=== PATIENT | male | born 1965 | race Caucasian/White ===

== ENCOUNTER 2025-08-12 12:34 | Outpatient (CLI) | payer MEDICAID ==
--- NOTE | 2025-08-12 20:33 | RADIOLOGY REPORT ---
EXAM: MR MRI UPPER EXTREMITY RIGHT INDICATION: PAIN IN RIGHT ARM TECHNIQUE: Multiplanar, multisequence imaging of the right forearm COMPARISON: None FINDINGS: Severely limited evaluation secondary to low resolution. BONES: No MR evidence of an acute fracture, osseous contusion, or aggressive focal osseous lesion. MUSCLES: Normal signal intensity and morphology. TENDONS: Please obtain dedicated MRI of the elbow for more accurate assessment with visualization of the edema along the distal biceps tendon. There is significant loss of signal of the edges of the field of view. no tendon injury at the level of the forearm. LIGAMENTS: Intact. JOINT SPACES: No joint effusion. NEUROVASCULAR: Normal. OTHER: None. IMPRESSION: 1. No definitive tendon tear of the level of the mid to distal forearm. 2. Please obtain dedicated MRI of the right elbow with and without contrast 3. Edema along the distal biceps tendon which is obscured secondary to low resolution and loss of signal, however presumably related to distal biceps tendon tear.
== END 2025-08-12 23:59 | disposition home or self-care (01) ==
LOC: MRI02 12:34
PROVIDERS: ATTEND Family Medicine
DX: M79.601 Pain in right arm (principal)
CPT/HCPCS: 73218

== ENCOUNTER 2025-09-08 15:22 | Outpatient (CLI) | payer MEDICAID ==
[~2025-09-08 15:22] MED LIST: GADOTERATE MEGLUMINE 7.5 MMOL/15 ML VIAL IV ONE
--- NOTE | 2025-09-08 20:41 | RADIOLOGY REPORT ---
EXAM: MR MRI UPPER EXTREMITY RIGHT INDICATION: PAIN IN RIGHT FOREARM TECHNIQUE: Multisequence, multiplanar MRI of the right elbow was performed in the absence of gadolinium contrast material. COMPARISON: MR MRI UPPER EXTREMITY RIGHT on DOS: 08/12/25 FINDINGS: [MEDIAL ELBOW]: Intact ulnar collateral ligament. Intact common flexor tendon group. [ANTERIOR ELBOW]: Significant complete rupture of the distal insertion of the biceps tendon with significant edema along the interosseous and bicipital radial bursa. A proximally 1.8 cm proximal retraction of the biceps tendon. Trace residual torn fibers of the radial tuberosity. Brachialis tendon is intact. Lacertus fibrosis intact. [LATERAL ELBOW]: Intact radial collateral, lateral ulnar collateral, and annular ligaments. Intact common extensor tendon origin. [POSTERIOR ELBOW]: Intact triceps tendon insertion. [JOINT SPACE]: No elbow joint effusion. [BONES]: Normal. [MUSCLES]: Normal. [NEUROVASCULAR]: At the cubital tunnel, normal signal intensity and morphology of the traversing ulnar nerve. The overlying cubital tunnel retinaculum is intact. Intact radial and median neurovascular bundles. IMPRESSION: 1. Significant complete rupture of the distal insertion of the biceps tendon with significant edema along the interosseous and bicipital radial bursa. 2. A proximally 1.8 cm proximal retraction of the biceps tendon.
[2025-09-09] MEDS ORDERED: GADOTERATE MEGLUMINE 7.5 MMOL/15 ML VIAL IV ONE (07:01)
== END 2025-09-08 23:59 | disposition home or self-care (01) ==
LOC: MRI 15:22
PROVIDERS: ATTEND Nurse Practitioner Family
DX: S46.111A Strain of muscle, fascia and tendon of long head of biceps, right arm, initial encounter (principal); M79.631 Pain in right forearm; R60.0 Localized edema; X58.XXXA Exposure to other specified factors, initial encounter; Y93.89 Activity, other specified; Y92.89 Other specified places as the place of occurrence of the external cause; Y99.8 Other external cause status
CPT/HCPCS: 73223; A9575